=== PATIENT | male | born 1965 | race Caucasian/White ===

== ENCOUNTER 2017-03-03 11:34 | Emergency (ER) | payer OTHER ==
[~2017-03-03] VITALS: Ht 193 cm; Wt 131.5 kg
[2017-03-03] MEDS ORDERED: TOPROL XL25 MG PO (11:43)
[2017-03-03] MEDS ORDERED: PRINIVIL20 M1 PO (11:43)
[2017-03-03] MEDS ORDERED: ALLOPURINOL 10100 M1 PO (11:44)
[2017-03-03] MEDS ORDERED: AUGMENTIN 875875 MG PO (12:35)
[2017-03-03] MEDS ORDERED: NORCO 5-325 TA1 EACH PO (12:38)
== END 2017-03-03 12:48 | disposition home or self-care (01) ==
LOC: ER 11:34
DX: L02.31 Cutaneous abscess of buttock (principal); I10 Essential (primary) hypertension